=== PATIENT | female | born 1975 | race Caucasian/White ===

== ENCOUNTER 2024-01-29 10:27 | Emergency (ER) | payer SELFPAY ==
[~2024-01-29] VITALS: Ht 170.2 cm; Wt 86.2 kg
[~2024-01-29 10:27] MED LIST: BYSTOLIC5 MG PO; CRESTOR10 MG PO; ETODOLAC400 M1 PO
[2024-01-29] MEDS ORDERED: LISINOPRIL10 MG PO (10:56)
[2024-01-29] MEDS: DEXAMETHASONE SOD PHOS INJ 4 MG/ML SDV IM ONE (11:05)
[2024-01-29] MEDS: KETOROLAC TROMETHAMINE 30 MG/ML VIAL IM ONE (11:05)
[2024-01-29] MEDS: ACETAMINOPHEN 325 MG TAB PO ONE (11:06)
[2024-01-29] MEDS: CYCLOBENZAPRINE HCL 10 MG TAB PO ONE (11:06)
[2024-01-29] MEDS ORDERED: TYLENOL325 MG PO (11:12)
[2024-01-29] MEDS ORDERED: IBUPROFEN800 MG PO (11:12)
[2024-01-29] MEDS ORDERED: ZANAFLEX4 MG PO (11:12)
[2024-01-29] MEDS ORDERED: PREDNISONE50 MG PO (11:12)
[2024-01-29 12:03] VITALS: PULSE 63; RESP 16; TEMP 98.5; O2SAT 97
== END 2024-01-29 12:03 | disposition home or self-care (01) ==
LOC: FSED 10:30
DX: M51.26 Other intervertebral disc displacement, lumbar region (principal); X50.1XXA Overexertion from prolonged static or awkward postures, initial encounter; Y92.89 Other specified places as the place of occurrence of the external cause; I10 Essential (primary) hypertension; E78.5 Hyperlipidemia, unspecified; N80.9 Endometriosis, unspecified
CPT/HCPCS: 72131; 81003; 96372; 99283; J1100; J1885